=== PATIENT | male | born 2005 | race Caucasian/White ===

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

== ENCOUNTER → 2024-09-27 | Outpatient (CLI) | payer OTHER ==
[~2024-09-27] MED LIST: ISOVUE-370 76% 100ML VIAL As Ordered ONE; ZYRTTAB8 PO
== END ==
LOC: M RAD 07:36
PROVIDERS: ATTEND Surgery
DX: S89.81XA Other specified injuries of right lower leg, initial encounter (principal); W18.30XA Fall on same level, unspecified, initial encounter; Y92.009 Unspecified place in unspecified non-institutional (private) residence as the place of occurrence of the external cause
CPT/HCPCS: 73701; Q9967

== ENCOUNTER → 2024-11-03 | Outpatient (CLI) | payer OTHER ==
[~2024-11-03] MED LIST changes: -ISOVUE-370 76% 100ML VIAL As Ordered ONE; +PROHANCE 279.3MG/ML 15ML VIAL As Ordered ONE; +PROHANCE 279.3MG/ML 5ML VIAL As Ordered ONE
== END ==
LOC: M RAD 12:25
PROVIDERS: ATTEND Surgery
DX: S80.11XA Contusion of right lower leg, initial encounter (principal); X58.XXXA Exposure to other specified factors, initial encounter; Y92.9 Unspecified place or not applicable; Y93.9 Activity, unspecified; Y99.9 Unspecified external cause status
CPT/HCPCS: 73720; A9576

== ENCOUNTER → 2024-11-11 | Outpatient (CLI) | payer OTHER ==
[~2024-11-11] MED LIST changes: -PROHANCE 279.3MG/ML 15ML VIAL As Ordered ONE; -PROHANCE 279.3MG/ML 5ML VIAL As Ordered ONE
== END ==
LOC: M SOG 07:51
PROVIDERS: ATTEND Physician Assistant
DX: S80.11XA Contusion of right lower leg, initial encounter (principal); Z53.9 Procedure and treatment not carried out, unspecified reason

== ENCOUNTER 2024-12-30 06:02 | Day surgery (SDC) | payer OTHER ==
[~2024-12-30] VITALS: Ht 180.3 cm; Wt 80.7 kg
[2024-12-30] MEDS ORDERED: NS (Normal Saline) 0.9% 1,000 ML IV SCH ×2 (06:30→09:10)
[2024-12-30] MEDS ORDERED: fentaNYL 100 MCG/2 ML INJECTION As Ordered ONE (07:05)
[2024-12-30] MEDS ORDERED: MIDAZOLAM INJ 2MG/2ML VIAL As Ordered ONE (07:05)
[2024-12-30] MEDS ORDERED: propofoL 200 MG/20 ML VIAL As Ordered ONE (07:06)
[2024-12-30] MEDS ORDERED: ACETAMINOPHEN 1000MG/100ML IV BAG As Ordered ONE (07:06)
[2024-12-30] MEDS ORDERED: LIDOCAINE 2% 100MG/5ML SDV (FOR ANES.) As Ordered ONE (07:06)
[2024-12-30] MEDS ORDERED: KETOROLAC 60MG 2ML VIAL As Ordered ONE (07:06)
[2024-12-30] MEDS ORDERED: ONDANSETRON 4MG 2ML VIAL As Ordered ONE (07:06)
[2024-12-30] MEDS: ceFAZolin 2 GM/D5W 50 ML IV BAG As Ordered ONE (07:50)
[2024-12-30] MEDS: BACITRACIN OINTMENT 30GM TUBE As Ordered ONE (08:50)
[2024-12-30] MEDS ORDERED: HYDROMORPHONE HCL 0.5 MG/ 0.5 ML SYRINGE IV PRN (09:10)
[2024-12-30] MEDS ORDERED: oxyCODONE 5MG TAB PO PRN (09:10)
[2024-12-30] MEDS ORDERED: fentaNYL 100 MCG/2 ML INJECTION IV PRN (09:10)
[2024-12-30] MEDS ORDERED: ONDANSETRON 4MG 2ML VIAL IV PRN (09:10)
[2024-12-30 10:05] VITALS: BP 127/71; TEMP 97; O2SAT 99
== END 2024-12-30 10:10 | disposition home or self-care (01) ==
LOC: M SDC 06:02
PROVIDERS: ATTEND Orthopaedic Surgery Hand Surgery
DX: M79.5 Residual foreign body in soft tissue (principal); J45.909 Unspecified asthma, uncomplicated; Z87.891 Personal history of nicotine dependence
CPT/HCPCS: 10121; 87070; 87075; 88300; 88305; J0131; J0665; J0690; J1100; J1885; J2250; J2405; J3010